=== PATIENT | female | born 1995 | race Caucasian/White ===

== ENCOUNTER 2016-12-24 12:48 | Emergency (ER) | payer MEDICAID, OTHER ==
[~2016-12-24] VITALS: Ht 157.5 cm; Wt 60.3 kg
[2016-12-24 12:52] VITALS: BP 127/85
--- NOTE | 2016-12-24 12:59 | NUR ---
PATIENT TO BED 8 AT THIS TIME.
--- NOTE | 2016-12-24 13:05 | NUR ---
21F BIB FAMILY C/O RIGHT INGUINAL PAIN, STABBING, NON-RADIATING, 9/10 X THIS MORNING; PT STATES 11 WEEKS ; PT STATES HAS SCANT, WHITE VAGINAL DISCHARGE; DENIES VAGINAL PAIN OR BLEEDING AT THIS TIME; PT DENIES N/V/D AT THIS TIME; PT A&OX4, PERRL, BL LUNG SOUNDS CLEAR, RR EVEN/UNLABORED, SKIN IS WARM/DRY/INTACT AT THIS TIME; PT RESTING IN BED W/ HOB ELEVATED AND IN LOWEST POSITION; POSITIONED FOR COMFORT; ER MD MADE AWARE OF STATUS. WILL CONTINUE TO MONITOR.
--- NOTE | 2016-12-24 13:26 | NUR ---
ER MD DR. TUCKER EVALUATING PT AT BEDSIDE.
[2016-12-24] MEDS ORDERED: ACETAMINOPHEN 650 MG/20.3 ML UDC PO ONE (13:30)
--- NOTE | 2016-12-24 15:05 | NUR ---
Patient appears to be resting comfortably in bed. Vital Signs within normal limits. Respirations even and unlabored. NO ACUTE DISTRESS NOTED AT THIS TIME. WILL CONTINUE TO MONITOR.
[2016-12-24 15:38] VITALS: BP 113/67
--- NOTE | 2016-12-24 15:38 | NUR ---
Patient discharged with v/s stable. Written and verbal after care instructions given and explained. Patient alert, oriented and verbalized understanding of instructions. Ambulatory with steady gait. All questions addressed prior to discharge. ID band removed. Patient advised to follow up with PMD. Rx of TYLENOL 325MG TAB given. Patient educated on indication of medication including possible reaction and side effects. Opportunity to ask questions provided and answered.
[2017-02-25] MEDS ORDERED: TYLENOL #3 300/1 TAB PO (10:53)
[2017-02-25] MEDS ORDERED: ZOFRAN ODT4 MG SL (10:57)
== END 2016-12-24 15:38 | disposition home or self-care (01) ==
LOC: MED 12:48
DX: O26.891 Other specified pregnancy related conditions, first trimester (principal); R10.2 Pelvic and perineal pain; Z3A.11 11 weeks gestation of pregnancy
CPT/HCPCS: 36415; 76705; 76801; 80053; 81001; 81025; 84702; 85025; 86900; 86901; 99285; Q0092

== ENCOUNTER 2016-12-25 15:39 | Emergency (ER) | payer OTHER ==
[~2016-12-25] VITALS: Ht 160 cm; Wt 60.3 kg
[2016-12-25 15:49] VITALS: BP 129/68
--- NOTE | 2016-12-25 16:31 | NUR ---
PT TO OVERFLOW 1
--- NOTE | 2016-12-25 16:40 | NUR ---
PATIENT TAKEN TO ULTRASOUND
--- NOTE | 2016-12-25 17:23 | NUR ---
BLOOD BEING DRAWN
--- NOTE | 2016-12-25 17:23 | NUR ---
PATIENT BACK FROM US STILL IN OF
[2016-12-25 17:32] LABS: BASOPHILS # (AUTO) 0.2 K/uL (0.00-0.22); LYMPHOCYTES # (AUTO) 2.5 K/uL (2.5-16.5); MONOCYTES # (AUTO) 0.5 K/uL (0.8-1.0); MONOCYTES % (AUTO) 4.4 % (1.7-9.3)
[2016-12-25 17:35] LABS: BASOPHILS % (AUTO) 1.8 % (0.0-2.0); EOSINOPHILS # (AUTO) 0.2 K/uL (0-0.4); EOSINOPHILS % (AUTO) 1.9 % (0.0-4.0); HEMATOCRIT 37.8 % (36-48); HEMOGLOBIN 12.9 g/dL (12.0-16.0); LYMPHOCYTES % (AUTO) 22.1 % (20.5-51.1); MEAN CORPUSCULAR HEMOGLOBIN 30 pg (27-31); MEAN CORPUSCULAR HGB CONC 34 g/dL (33-37); MEAN CORPUSCULAR VOLUME 89 fL (80-94); NEUTROPHILS # (AUTO) 7.8 K/uL (1.8-7.7); NEUTROPHILS % (AUTO) 69.8 % (42.2-75.2); PLATELET COUNT (AUTO) 254 K/uL (140-450); RED BLOOD CELL COUNT(AUTO) 4.25 MIL/uL (4.20-5.40); RED CELL DISTRIBUTION WIDTH 11.9 % (11.6-13.7); WHITE BLOOD COUNT (AUTO) 11.2 K/uL (4.5-11.0)
[2016-12-25 17:37] LABS: ANION GAP 11.2 (8-16); CALCIUM 8.6 mg/dL (8.5-10.1); CARBON DIOXIDE 23.5 mmol/L (21-32); CREATININE 0.4 mg/dL (0.6-1.3); POTASSIUM 3.7 mmol/L (3.5-5.1)
[2016-12-25 17:43] LABS: ALBUMIN 3.4 g/dL (3.4-5.0); TOTAL BILIRUBIN 0.2 mg/dL (0.0-1.0)
[2016-12-25 17:45] LABS: PARTIAL THROMBOPLASTIN TIME 29.2 secs (22-35.6); PROTHROMBIN TIME 9.3 secs (10.8-13.4)
[2016-12-25 18:10] VITALS: BP 113/68
--- NOTE | 2016-12-25 18:10 | NUR ---
DR. QUINTANILLA EXPLAINED TO PATIENT RESULT OF US. PATIENT WILL SEE Andie RUFFIN TOMORROW
--- NOTE | 2016-12-25 18:10 | NUR ---
Patient discharged with v/s stable. Written and verbal after care instructions given and explained. Patient verbalized understanding. Ambulatory with steady gait. All questions addressed prior to discharge. Advised to follow up with PMD.
--- NOTE | 2016-12-25 18:10 | NUR ---
Chart checked and completed. The patient's care was reviewed and supervised by Peterson Faith RN.
== END 2016-12-25 18:10 | disposition home or self-care (01) ==
LOC: MED 15:39
DX: O34.81 Maternal care for other abnormalities of pelvic organs, first trimester (principal); Z3A.11 11 weeks gestation of pregnancy
CPT/HCPCS: 36415; 76705; 80053; 85025; 85610; 85730; 99285; Q0092

== ENCOUNTER 2016-12-29 22:35 | Emergency (ER) | payer OTHER ==
[~2016-12-29] VITALS: Ht 160 cm; Wt 60.3 kg
[2016-12-29 22:36] VITALS: BP 126/67
--- NOTE | 2016-12-29 22:47 | NUR ---
PT TAKEN TO BED 4
--- NOTE | 2016-12-29 22:57 | NUR ---
21 Y/O F W/C/O LOWER ABD PAIN, NAUSEA AND VOMITING X TODAY AT 2200. PT STATES WAS SEEN LAST SATURDAY AND SATURDAY FOR SAME REASON AND WAS TOLD SHE HAD A CYST. IV LINE IN PLACED, ER MD MADE AWARE.
--- NOTE | 2016-12-29 23:12 | NUR ---
Dr. Call evaluating patient at bedside.
[2016-12-29 23:24] LABS: BASOPHILS # (AUTO) 0.2 K/uL (0.00-0.22); BASOPHILS % (AUTO) 1.8 % (0.0-2.0); EOSINOPHILS # (AUTO) 0.2 K/uL (0-0.4); EOSINOPHILS % (AUTO) 1.6 % (0.0-4.0); HEMATOCRIT 39.2 % (36-48); HEMOGLOBIN 13.4 g/dL (12.0-16.0); LYMPHOCYTES # (AUTO) 3.2 K/uL (2.5-16.5); LYMPHOCYTES % (AUTO) 30.4 % (20.5-51.1); MEAN CORPUSCULAR HEMOGLOBIN 31 pg (27-31); MEAN CORPUSCULAR HGB CONC 34 g/dL (33-37); MEAN CORPUSCULAR VOLUME 89 fL (80-94); MONOCYTES # (AUTO) 0.7 K/uL (0.8-1.0); MONOCYTES % (AUTO) 6.8 % (1.7-9.3); NEUTROPHILS # (AUTO) 6.2 K/uL (1.8-7.7); NEUTROPHILS % (AUTO) 59.4 % (42.2-75.2); PLATELET COUNT (AUTO) 253 K/uL (140-450); RED CELL DISTRIBUTION WIDTH 12.1 % (11.6-13.7); WHITE BLOOD COUNT (AUTO) 10.5 K/uL (4.5-11.0)
[2016-12-29 23:33] LABS: APPEARANCE,URINE CLEAR (CLEAR); BILIRUBIN,URINE NEGATIVE (NEGATIVE); BLOOD, URINE NEGATIVE (NEGATIVE); COLOR,URINE YELLOW (YELLOW); LEUKOCYTE ESTERASE ,URINE NEGATIVE (NEGATIVE); NITRITE, URINE NEGATIVE (NEGATIVE); PROTEIN,URINE NEGATIVE (NEGATIVE); UGLUCOSE NEGATIVE (NEGATIVE); UROBILINOGEN,URINE 0.2 EU/dL (0.2 - 1)
[2016-12-29 23:37] LABS: BACTERIA,URINE FEW /HPF (None Seen); RBC,URINE 0-5 /HPF (0-5); WBC,URINE 0-5 /HPF (0-5)
[2016-12-29 23:37] LABS: ALBUMIN 3.9 g/dL (3.4-5.0); ANION GAP 14.6 (8-16); CALCIUM 9.5 mg/dL (8.5-10.1); CREATININE 0.6 mg/dL (0.6-1.3); POTASSIUM 3.6 mmol/L (3.5-5.1); TOTAL BILIRUBIN 0.3 mg/dL (0.0-1.0); TOTAL PROTEIN, SERUM 7.9 g/dL (6.4-8.2)
--- NOTE | 2016-12-30 00:07 | NUR ---
PT TAKEN FOR ULTRASOUND
--- NOTE | 2016-12-30 00:30 | NUR ---
PT RETURN FROM ULTRASOUND
[2016-12-30] MEDS ORDERED: ONDANSETRON 4 MG/2 ML VIAL IVP ONE (00:55)
[2016-12-30] MEDS ORDERED: NACL 0.9% 1,000 ML IV ONE (00:55)
[2016-12-30] MEDS ORDERED: MORPHINE SULFATE 2 MG/ML SYR IVP ONE (00:55)
--- NOTE | 2016-12-30 01:27 | NUR ---
Pelvic exam performed by DR TUCKER with ME at bedside for entire examination. Patient tolerated procedure WELL. Patient assisted to position of comfort after examination. SPECIMENT COLLECETED BY EDWARD PANDA FOR WET MOUNT.
[2016-12-30 02:30] VITALS: BP 98/72
--- NOTE | 2016-12-30 02:30 | NUR ---
Patient discharged with v/s stable. Written and verbal after care instructions given and explained. Patient alert, oriented and verbalized understanding of instructions. Ambulatory with steady gait. All questions addressed prior to discharge. ID band removed. Patient advised to follow up with OB /MANUFACTURING TEST TECHNICIAN. Rx of NORCO AND ZOFRAN given. Patient educated on indication of medication including possible reaction and side effects. Opportunity to ask questions provided and answered.
[2017-01-01 06:31] LABS: CHLAMYDIA TRACHOMATIS AMP DNA Negative (Negative)
== END 2016-12-30 02:30 | disposition home or self-care (01) ==
LOC: MED 22:35
DX: O34.81 Maternal care for other abnormalities of pelvic organs, first trimester (principal); N83.291 Other ovarian cyst, right side; Z3A.11 11 weeks gestation of pregnancy
CPT/HCPCS: 36415; 76705; 76817; 80053; 81001; 81025; 84702; 85025; 87086; 87210; 96361; 96374; 96375; 99285; J2270; J2405; J7030; Q0092; 87491

== ENCOUNTER 2017-02-21 15:07 | Inpatient (IN) | payer OTHER ==
[~2017-02-21] VITALS: Ht 160 cm; Wt 61.7 kg
--- NOTE | 2017-02-21 15:07 | NUR ---
Patient to bed 03 via wheelchair per RN--from L&D.
[2017-02-21 15:10] VITALS: BP 109/59
--- NOTE | 2017-02-21 15:10 | NUR ---
PATIENT PRESENTS TO ED WITH PT PRESENTS TO ER FROM L&D FOR EVALUATION OF ABDOMINAL PAIN, N/V. PT SEEN IN ER LAST NOC FOR SAME S/SX. LMP 10/05/16, EDC 07/12/17; DENIES N/V; SKIN IS PINK/WARM/DRY; AAOX4 WITH EVEN AND STEADY GAIT; LUNGS CLEAR BL; HR EVEN AND REGULAR; PT DENIES ANY FEVER, CP, SOB, OR COUGH AT THIS TIME; PATIENT STATES PAIN OF 9/10 AT THIS TIME; VSS; PATIENT POSITIONED FOR COMFORT; HOB ELEVATED; BEDRAILS UP X2; BED DOWN. ER MD MADE AWARE OF PT STATUS.
--- NOTE | 2017-02-21 15:16 | NUR ---
Dr. Nguyen evaluating patient at bedside.
[2017-02-21] MEDS ORDERED: NACL 0.9% 1,000 ML IV SCH (15:22)
[2017-02-21] MEDS ORDERED: ONDANSETRON 4 MG/2 ML VIAL IVP ONE (15:25)
[2017-02-21] MEDS ORDERED: HYDROmorphone PFS 2 MG/ML SYR IVP ONE ×2 (15:25→16:45)
--- NOTE | 2017-02-21 15:40 | NUR ---
DR BETANCOURT EXPLAINED POSSIBLE SIDE EFFECTS OF DILAUDID ON FETUS TO PT AND , PT AGREED TO RECIEVE MEDICATION
--- NOTE | 2017-02-21 16:08 | NUR ---
DR BETANCOURT AT BEDSIDE UPDATING PT OF CONDITION
[2017-02-21 16:19] LABS: BASOPHILS # (AUTO) 0.1 K/uL (0.00-0.22); BASOPHILS % (AUTO) 0.8 % (0.0-2.0); EOSINOPHILS # (AUTO) 0.2 K/uL (0-0.4); EOSINOPHILS % (AUTO) 1.1 % (0.0-4.0); HEMATOCRIT 35.7 % (36-48); HEMOGLOBIN 12.3 g/dL (12.0-16.0); LYMPHOCYTES # (AUTO) 2.5 K/uL (2.5-16.5); LYMPHOCYTES % (AUTO) 16.1 % (20.5-51.1); MEAN CORPUSCULAR HEMOGLOBIN 31 pg (27-31); MEAN CORPUSCULAR HGB CONC 35 g/dL (33-37); MEAN CORPUSCULAR VOLUME 90 fL (80-94); MONOCYTES # (AUTO) 0.8 K/uL (0.8-1.0); MONOCYTES % (AUTO) 5.3 % (1.7-9.3); NEUTROPHILS # (AUTO) 11.7 K/uL (1.8-7.7); NEUTROPHILS % (AUTO) 76.7 % (42.2-75.2); PLATELET COUNT (AUTO) 272 K/uL (140-450); RED BLOOD CELL COUNT(AUTO) 3.99 MIL/uL (4.20-5.40); RED CELL DISTRIBUTION WIDTH 12.9 % (11.6-13.7); WHITE BLOOD COUNT (AUTO) 15.3 K/uL (4.5-11.0)
[2017-02-21 16:27] LABS: CALCIUM 8.9 mg/dL (8.5-10.1); CARBON DIOXIDE 23.1 mmol/L (21-32); CREATININE 0.4 mg/dL (0.6-1.3); POTASSIUM 3.1 mmol/L (3.5-5.1)
[2017-02-21 16:34] LABS: ALBUMIN 3.3 g/dL (3.4-5.0); TOTAL BILIRUBIN 0.3 mg/dL (0.0-1.0); TOTAL PROTEIN, SERUM 7.6 g/dL (6.4-8.2)
[2017-02-21] MEDS: HYDROmorphone 1 MG/ML AMP IVP ONE ×2 (16:45→18:51)
--- NOTE | 2017-02-21 18:06 | NUR ---
Patient was taken to bed 08 via wheelchair per RN.
[2017-02-21] MEDS ORDERED: HYDROmorphone 1 MG/ML AMP ONE (18:53)
--- NOTE | 2017-02-21 19:20 | NUR ---
REPORT GIVEN RN PIN FOR CONTINUATION OF CARE
--- NOTE | 2017-02-21 19:21 | NUR ---
GOT REPORT FROM GERRI REYES. PT. RESTING IN BED, NO S/SX OF DISTRESS AT THIS TIME.
--- NOTE | 2017-02-21 19:31 | NUR ---
Female Trash Collector accompanied female patient for Pelvic Exam. DR. IBRAHIM
[2017-02-21] MEDS ORDERED: HYDROmorphone 1 MG/ML AMP IVP SCH (20:00)
[2017-02-21] MEDS ORDERED: DOCUSATE SODIUM 100 MG GELCAP PO PRN (20:00)
[2017-02-21 20:16] LABS: APPEARANCE,URINE HAZY (CLEAR); BILIRUBIN,URINE NEGATIVE (NEGATIVE); BLOOD, URINE NEGATIVE (NEGATIVE); COLOR,URINE YELLOW (YELLOW); LEUKOCYTE ESTERASE ,URINE NEGATIVE (NEGATIVE); NITRITE, URINE NEGATIVE (NEGATIVE); PROTEIN,URINE NEGATIVE (NEGATIVE); UGLUCOSE NEGATIVE (NEGATIVE); UROBILINOGEN,URINE 0.2 EU/dL (0.2 - 1)
[2017-02-21 20:21] LABS: INR 0.9 (0.8-1.2); PARTIAL THROMBOPLASTIN TIME 24.7 secs (22-35.6); PROTHROMBIN TIME 9.5 secs (10.8-13.4)
[2017-02-21 20:24] LABS: CHOL/HDL RATIO 3.7 (1-4.5); MAGNESIUM 1.4 mg/dL (1.8-2.4); PHOSPHORUS 4.7 mg/dL (2.5-4.9)
--- NOTE | 2017-02-21 20:25 | NUR ---
Patient will be admitted to care of DR. GUERRERO. Admited to TELEMETRY. Will go to room 120 A. Belongings list completed. Report to GERRI LAUREANO.
--- NOTE | 2017-02-21 20:30 | NUR ---
PT ARRIVED TO UNIT VIA GURNEY. INITIAL ASSESSMENT COMPLETED. PT AAOX4. VS STABLE, PT'S SKIN IS INTACT. PT HAS IV ON RIGHT AC G 20; ASYMPTOMATIC, PATENT AND INTACT INFUSING FLUIDS WELL. PT IS NPO, AND SHE IS AWARE. ORIENTED PT TO ROOM AND SURROUNDINGS AND USE OF CALL LIGHT. EXPLAINED PLAN OF CARE TO PT AND SIGNIFICANT OTHER AND THEY VERBALIZE UNDERSTANDING. CALL LIGHT WITHIN REACH. WILL CONTINUE TO MONITOR PT.
[2017-02-21] MEDS: NACL 0.9% 1,000 ML IV SCH (20:41)
[2017-02-21 20:44] LABS: FREE T4 (FREE THYROXINE) 1.02 ng/dL (0.76-1.46); THYROID STIMULATING HORMONE 0.76 uIU/mL (0.34-3.74)
--- NOTE | 2017-02-21 21:02 | NUR ---
PT COMPLAINING OF LOWER ABDOMINAL PAIN. VS STABLE, WILL MEDICATE ORDERED.
[2017-02-21] MEDS ORDERED: cefTRIAXone 1,000 MG VIAL ONE (21:04)
[2017-02-21] MEDS: metroNIDAZOLE 500 MG/NS PREMIX 100 ML IV SCH (22:06)
--- NOTE | 2017-02-21 22:11 | NUR ---
RADHA INFUSING NOW. PT ON HER CELL PHONE. PT STABLE, CALL LIGHT WITHIN REACH.
--- NOTE | 2017-02-21 22:53 | NUR ---
PT COMPLAINING OF ABDOMINAL PAIN. ONE TIME ORDER FOR DILAUDID 1 MG WAS GIVEN TWO HOURS. PAGED DR. JIANG. HE ASKED FOR PT'S ROOM NUMBER AND STATED THAT HE WOULD PUT IN ORDERS. WILL FOLLOW UP.
[2017-02-21] MEDS ORDERED: MORPHINE SULFATE 2 MG/ML SYR IVP PRN (23:05)
--- NOTE | 2017-02-21 23:15 | NUR ---
DR. JIANG ORDERED MORPHINE FOR PAIN. AWARE OF PT BEEN 19 WEEKS . WILL CONTINUE TO MONITOR PT.
[2017-02-22] VITALS (7 sets, daily range): BP systolic 92–127; BP diastolic 51–75
--- NOTE | 2017-02-22 00:36 | NUR ---
PT COMPLAINING OF ABDOMINAL PAIN 03/04, VS STABLE. WILL MEDICATE ORDERED.
--- NOTE | 2017-02-22 01:04 | NUR ---
PT'S POTASSIUM IS 3.1 AND MAGNESIUM IS 1.4. MD JIANG AWARE. WILL FOLLOW UP ON ORDERS.
[2017-02-22] MEDS ORDERED: POTASSIUM CHLORIDE 40 MEQ, LIDOCAINE 1% 25 MG in NACL 0.9% 250 ML IV ONE (01:25)
[2017-02-22] MEDS ORDERED: MAG SULF 2000 MG/WATER PREMIX 50 ML IV ONE (01:25)
--- NOTE | 2017-02-22 01:31 | NUR ---
PT COMPLAINING OF NAUSEA AND VOMITING. WILL GIVE ZOFRAN ORDERED.
[2017-02-22] MEDS: ONDANSETRON 4 MG/2 ML VIAL IVP PRN (01:33)
--- NOTE | 2017-02-22 01:44 | NUR ---
MAGNESIUM INFUSING NOW ORDERED. WILL CONTINUE TO MONITOR PT.
--- NOTE | 2017-02-22 03:26 | NUR ---
PT AMBULATED TO THE RESTROOM. PT BACK IN BED NOW. CALL LIGHT WITHIN REACH.
[2017-02-22] MEDS ORDERED: KCL 20 MEQ/WATER INJ PREMIX 200 ML IV ONE (03:35)
--- NOTE | 2017-02-22 04:02 | NUR ---
MAGNESIUM JUST FINISHED INFUSING. PER AIR FORCE PILOT, WILL GIVE FLAGYL AND THEN WILL START THE POTASSIUM.
[2017-02-22] MEDS: metroNIDAZOLE 500 MG/NS PREMIX 100 ML IV SCH ×3 (04:19→21:45)
[2017-02-22] MEDS: HYDROmorphone 1 MG/ML AMP IVP PRN ×4 (04:24→14:34)
--- NOTE | 2017-02-22 04:24 | NUR ---
PT COMPLAINING OF ABDOMINAL PAIN 04/04. SHE STATES THAT SHE WANTS MORE PAIN MEDICATION. WILL MEDICATE ORDERED.
--- NOTE | 2017-02-22 05:08 | NUR ---
PT SLEEPING NO SIGNS OF DISTRESS OR DISCOMFORT NOTED. WILL CONTINUE TO MONITOR PT.
--- NOTE | 2017-02-22 05:45 | NUR ---
PT TOLERATING POTASSIUM WELL. PT HAS SCDS ON. SHE STATES THAT SHE FEELS BETTER. CALL LIGHT WITHIN REACH.
[2017-02-22 06:45] LABS: HEMATOCRIT 32.9 % (36-48); HEMOGLOBIN 10.9 g/dL (12.0-16.0); MEAN CORPUSCULAR HEMOGLOBIN 30 pg (27-31); MEAN CORPUSCULAR HGB CONC 33 g/dL (33-37); MEAN CORPUSCULAR VOLUME 92 fL (80-94); PLATELET COUNT (AUTO) 265 K/uL (140-450); RED BLOOD CELL COUNT(AUTO) 3.59 MIL/uL (4.20-5.40); RED CELL DISTRIBUTION WIDTH 12.8 % (11.6-13.7); WHITE BLOOD COUNT (AUTO) 15.2 K/uL (4.5-11.0)
[2017-02-22 07:10] LABS: ANION GAP 14.4 (8-16); CALCIUM 8.1 mg/dL (8.5-10.1); CARBON DIOXIDE 22.3 mmol/L (21-32); CREATININE 0.4 mg/dL (0.6-1.3); POTASSIUM 3.7 mmol/L (3.5-5.1)
[2017-02-22 07:16] LABS: MAGNESIUM 2.1 mg/dL (1.8-2.4); PHOSPHORUS 3.8 mg/dL (2.5-4.9)
--- NOTE | 2017-02-22 07:28 | NUR ---
ENDORSED PLAN OF CARE TO DAY SHIFT NURSE. PT IN STABLE CONDITION.
--- NOTE | 2017-02-22 07:30 | NUR ---
RECEIVED REPORT FROM MARY RN. PT AMBULATING FROM BATHROOM. NO S/S OF ACUTE DISTRESS. PT DENIES PAIN. IV SITE PATENT AND INTACT. AAOX4. CALL LIGHT WITHIN REACH. SAFETY MEASURES ENSURED. WILL CONTINUE TO MONITOR.
[2017-02-22 08:12] LABS: EOSINOPHILS % (MANUAL) 1 % (0-4)
[2017-02-22 08:13] LABS: LYMPHOCYTES % (MANUAL) 13 % (20-46); MONOCYTES % (MANUAL) 5 % (5-12); NEUTROPHILS % (MANUAL) 81 (43-65)
--- NOTE | 2017-02-22 08:13 | NUR ---
AM MEDICATIONS GIVEN WITH EDUCATION. PT VERBALIZED UNDERSTANDING. PT TOLERATED WELL. PT STATES 8/10 ABDOMINAL PAIN. MEDICATED ORDERED. WILL CONTINUE TO MONITOR.
[2017-02-22 08:14] LABS: PLATELET ESTIMATE ADEQUATE
[2017-02-22] MEDS: LACTOBACILLUS RHAMNOSUS GG 1 EACH CAP PO SCH (08:17)
--- NOTE | 2017-02-22 08:37 | NUR ---
CM NOTE INITAL REVIEW FAXED TO [facility] [phone] BANG MAHONEY [phone] EXT [phone]
--- NOTE | 2017-02-22 08:45 | NUR ---
PATIENT HAS BEEN SCREENED AND CATEGORIZED MODERATE NUTRITION RISK. PATIENT WILL BE SEEN WITHIN 3-5 DAYS OF ADMISSION. 02/24/17-02/26/[address]
[2017-02-22] MEDS ORDERED: MORPHINE SULFATE 2 MG/ML SYR IVP PRN (09:10)
[2017-02-22 09:16] LABS: T4 (THYROXINE) 11.6 ug/dL (4.5-12.0)
[2017-02-22 09:24] LABS: T3 UPTAKE < 15 % (24-39)
[2017-02-22] MEDS ORDERED: MORPHINE SULFATE 4 MG/ML SYR IVP PRN (09:28)
[2017-02-22 09:43] LABS: LACTIC ACID 0.9 mmol/L (0.4-2.0)
[2017-02-22] MEDS: NACL 0.9% 1,000 ML IV SCH ×2 (10:13→21:05)
--- NOTE | 2017-02-22 10:42 | NUR ---
Social Service Note: Chart reviewed, no discharge needs identified.
--- NOTE | 2017-02-22 10:54 | NUR ---
UPON ENTERING ROOM PT CRYING AND RESTLESS. PT STATES SHARP STABBING PAIN IS 10/10 RIGHT LOWER ABDOMEN RADIATING TO BACK. PT STATES PAIN WAS TRIGGERED BY A POSITION CHANGE. NUMERICAL CONTROL LATHE OPERATOR MADE AWARE. MORPHINE GIVEN. WILL CONTINUE TO MONITOR.
--- NOTE | 2017-02-22 10:57 | NUR ---
CM NOTE FAXED ORDER FOR TRANSFER TO [facility] TO [place] [phone] ATTN: BANG MAHONEY [phone]
--- NOTE | 2017-02-22 11:15 | NUR ---
ABBY HAZEL SPOKE WITH ANDREW FOR ABBY RAYMUNDO OF [facility] [phone] EXT [phone] TO INFORM HER OF THE ORDER FOR TRANSFER FOR HLOC AND TO ASK WHICH FACILITY THEY ARE CONTRACTED WITH. PER ANDREW, ABBY RAYMUNDO IS STILL IN A MEETING AND WILL RETURN THE CALL WHEN SHE BECOMES AVAILABLE. ABBY PATTERSON.
--- NOTE | 2017-02-22 11:43 | NUR ---
PER DR. GUY ALLRED TO GIVE DILAUDID NOW FOR PAIN.
[2017-02-22] MEDS: MULTIVIT/MIN/CA/FE/FA 1 TAB PO SCH (12:51)
--- NOTE | 2017-02-22 12:52 | NUR ---
MEDICATIONS GIVEN WITH EDUCATION. PT VERBALIZED UNDERSTANDING. PT TOLERATED WELL. WILL CONTINUE TO MONITOR.
--- NOTE | 2017-02-22 12:57 | NUR ---
1230 RECEIVED CALL FROM BREANNE MORA AT [facility] PHONE [phone] EXT [phone] AND SHE PROVIDED A LIST OF CONTRACTED FACILITIES WITH [facility], [facility], [facility], [facility], [facility], [facility], [facility], [facility], [facility], [facility], [facility] AND [facility].
--- NOTE | 2017-02-22 14:18 | NUR ---
1300 INFORMATION FAXED TO [facility] TRANSFER UNIT AT [phone], PHONE [phone] OPTION# [phone] RECEIVED CALL FROM GABBY AT TRANSFER UNIT REQUESTING FURTHER INFORMATION WHICH WAS FAXED. AT 1330 CALLED [facility] AND SPOKE WITH SATELLITE TELEVISION INSTALLER CHRIS AND HE STATED THAT THEY COULD DO MRI AND SEND PT BACK BUT COULD NOT ADMIT PT PT IS HIGH RISK SINCE SHE IS 19 WEEKS . CALL PLACED TO [facility] [phone] AND WAS TRANSFERRED TO SATELLITE TELEVISION INSTALLER WHO STATED WOULD TRANSFER ME TO AND I LEFT VM MESSAGE. [phone] CALLED BREANNE AT [facility] TO REQUEST AUTHORIZATION IF A BED BECOMES AVAILABLE FOR PT. SHE STATED THAT AUTHORIZATION CAN NOT BE GIVEN UNTIL PLACEMENT IS FOUND. STATED THAT THEIR GREEN END MAN IS AWARE OF SITUATION AND THAT WHEN BED FOUND TO CALL [phone] AND AUTHORIZATION WILL BE GIVEN QUICKLY. INFORMED HER THAT MOST OF THE FACILITIES PROVIDED DO NOT HAVE NICU AND THEY CONSIDER PT HIGH RISK.
--- NOTE | 2017-02-22 14:29 | NUR ---
Spoke to CHERY nurse supervisor asbestos removal at [facility] at [phone] and stated no bed available and transfered me to [facility] case specialist and left a message.
--- NOTE | 2017-02-22 14:37 | NUR ---
PER DR. JOSEMANUEL ALLRED TO GIVE EARLY FOR PT'S SEVERE PAIN. FAMILY AT BEDSIDE. WILL CONTINUE TO MONITOR.M
--- NOTE | 2017-02-22 15:34 | NUR ---
1430 CALL RECEIVED FROM GABBY AT [facility] TRANSFER UNIT [phone] OPTION 4 AND FAXED OVER REQUESTED INFORMATION.
--- NOTE | 2017-02-22 15:50 | NUR ---
CALL PLACED TO GABBY AT [facility] AND INFORMED HER TO CANCEL REQUEST FOR TRANSFER PT WILL GO TO SURGERY TODAY.
--- NOTE | 2017-02-22 16:03 | NUR ---
PT SLEEPING IN BED. NO S/S OF ACUTE DISTRESS. WILL CONTINUE TO MONITOR.
[2017-02-22] MEDS ORDERED: BUPIVACAINE-MPF/EPI 0.5% 30 ML VIAL INJ ONE (17:19)
--- NOTE | 2017-02-22 17:23 | NUR ---
PT OFF UNIT TO OR
[2017-02-22] MEDS ORDERED: MORPHINE PRES FREE 10 MG/10 ML AMP IV ONE (18:52)
[2017-02-22] MEDS ORDERED: NALOXONE 0.4 MG/ML VIAL IVP PRN (19:20)
--- NOTE | 2017-02-22 19:28 | NUR ---
ENDORSED PLAN OF CARE TO NURSE JENNIE AT PT BEDSIDE. NO S/S OF ACUTE DISTRESS NOTED. Addendum: 02/22/17 at 1929 by Héctor Austin RN GERRI MARTINES
--- NOTE | 2017-02-22 19:30 | NUR ---
RECEIVED REPORTS FROM DAY RN. PATIENT IS IN THE OR RIGHT NOW. WILL CONTINUE PLAN OF CARE WHEN PATIENT IS BACK TO THE UNIT FROM THE OR.
--- NOTE | 2017-02-22 21:00 | NUR ---
PATIENT IS BACK TO THE UNIT FROM OR. VITAL SIGNS TAKEN WITHIN NORMAL RANGE, S/S OF ACUTE DISTRESS NOTED, PATIENT DENIES PAIN AT THIS TIME, DRESSING ON RT ABDOMEN CLEAN AND DRY. ORELLANA CATHETER DRAINING CLEAR YELLOW URINE BY GRAVITY. PATIENT IS KEPT SUPINE AND FLAT IN BED, CALL LIGHT WITHIN REACH, SAFETY MEASURE ENSURED, WILL CONTINUE TO MONITOR.
--- NOTE | 2017-02-22 21:01 | NUR ---
VS T 98.8, BP 99/57, HR 86, RR 18, O2 SAT 98%. DENIES PAIN
--- NOTE | 2017-02-22 21:30 | NUR ---
VITAL SIGNS TAKEN, READ T 98.4, BP104/56, HR 89, RR 18, O2 SAT 96%. PATIENT DENIES PAIN AT THIS TIME. NO S/S OF ACUTE DISTRESS NOTED, WILL CONTINUE TO MONITOR.
[2017-02-22] MEDS: DOCUSATE SODIUM 100 MG GELCAP PO SCH (21:44)
--- NOTE | 2017-02-22 22:00 | NUR ---
VITAL SIGNS TAKEN READ T 98.4, BP 98/54, HR 88, RR, 17, O2 SAT 99%. PATIENT DENIES PAIN AT THIS TIME. DRESSING ON RT ABDOMEN CLEAN AND DRY. CALL LIGHT WITHIN REACH WILL CONTINUE TO MONITOR.
--- NOTE | 2017-02-22 22:30 | NUR ---
VITAL SIGNS TAKEN, READ T 98.6, BP 103/51, HR 94, RR 17, O2 SAT 97%, DENIES PAIN AT THIS TIME. DRESSING ON RT ABDOMEN CLEAN AND DRY, CALL LIGHT WITHIN REACH, WILL CONTINUE TO MONITOR.
--- NOTE | 2017-02-22 23:30 | NUR ---
VS T98.2, BP 105/60, HR 89, RR15, O2SAT 97%, PATIENT DENIES PAIN AT THIS TIME, DRESSING INTACT, DRY AND CLEAN. CALL LIGHT WITHIN REACH, WILL CONTINUE TO MONITOR
[2017-02-23] VITALS: BP 105/60
--- NOTE | 2017-02-23 00:30 | NUR ---
VS T 98.3, BP 101/56, HR 84, RR 17, O2SAT 99%. DENIES PAIN AT THIS TIME. CALL LIGHT WITHIN REACH, WILL CONTINUE TO MONITOR
--- NOTE | 2017-02-23 02:00 | NUR ---
ORELLANA CATHETER TAKEN OUT, PATIENT TOLERATED WELL. WILL MONITOR URINE OUTPUT, AND NOTIFY MD IF PATIENT IS NOT ABLE TO VOID FOR 6 HOURS.
--- NOTE | 2017-02-23 02:30 | NUR ---
ASSIST PATIENT TO THE BATHROOM, PATIENT VOID X1, AND DENIES DISCOMFORT OR DIFFICULT URINATING. SAFETY MEASURE ENSURED, WILL CONTINUE TO MONITOR.
[2017-02-23 04:00] VITALS: BP 93/51
--- NOTE | 2017-02-23 04:22 | NUR ---
PATIENT ASLEEP IN BED, NO S/S OF ACUTE DISTRESS NOTED, RESPIRATION EVEN AND UNLABORED, WILL CONTINUE TO MONITOR.
[2017-02-23] MEDS: metroNIDAZOLE 500 MG/NS PREMIX 100 ML IV SCH ×3 (04:46→21:46)
--- NOTE | 2017-02-23 06:28 | NUR ---
PATIENT ASLEEP IN BED, RESPIRATION EVEN AND UNLABORED, DRESSING DRY AND INTACT. SAFETY MEASURE ENSURED, WILL CONTINUE TO MONITOR.
[2017-02-23 06:32] LABS: HEMOGLOBIN 10.5 g/dL (12.0-16.0); MEAN CORPUSCULAR HEMOGLOBIN 30 pg (27-31); MEAN CORPUSCULAR HGB CONC 33 g/dL (33-37); MEAN CORPUSCULAR VOLUME 91 fL (80-94); PLATELET COUNT (AUTO) 242 K/uL (140-450); RED BLOOD CELL COUNT(AUTO) 3.51 MIL/uL (4.20-5.40); RED CELL DISTRIBUTION WIDTH 12.9 % (11.6-13.7); WHITE BLOOD COUNT (AUTO) 12.3 K/uL (4.5-11.0)
[2017-02-23 07:03] LABS: ANION GAP 13.8 (8-16); CALCIUM 8.5 mg/dL (8.5-10.1); CARBON DIOXIDE 23.6 mmol/L (21-32); CREATININE 0.4 mg/dL (0.6-1.3); POTASSIUM 3.4 mmol/L (3.5-5.1)
[2017-02-23 07:11] LABS: MAGNESIUM 1.6 mg/dL (1.8-2.4); PHOSPHORUS 4.1 mg/dL (2.5-4.9)
--- NOTE | 2017-02-23 07:16 | NUR ---
ASSUMED CONTINUITY OF CARE. NO SIGNS AND SYMPTOMS OF ACUTE DISTRESS NOTED. INITIAL ASSESSMENT DONE. PT. -ELSA ON BEDSIDE. KEEP COMFORTABLE ON BED. EXPLAINED DIAGNOSIS, PLAN OF CARE, POST-OP CARE, INCISION CARE, PAIN MANAGEMENT TEACHING, USE OF CALL LIGHT/BED/TV/BATHROOM. VERBALIZED UNDERSTANDING. CALL LIGHT WITHIN REACH.
--- NOTE | 2017-02-23 07:16 | NUR ---
ENDORSED PLAN OF CARE TO DAY RN, PATIENT IS IN STABLE CONDITION.
--- NOTE | 2017-02-23 07:30 | NUR ---
PT AWAKE, ALERT ORIENTEDX4. NO SOB NOTED. DENIES ANY PAIN OR DISCOMFORT AT THIS TIME. PT AMBULATORY. ABDOMINAL DRESSING INTACT. SAFETY PRECAUTION IN PLACE. CALL LIGHT WITHIN REACH.
[2017-02-23 07:35] LABS: BAND % (MANUAL) 4 % (0-8); LYMPHOCYTES % (MANUAL) 8 % (20-46); MONOCYTES % (MANUAL) 3 % (5-12); NEUTROPHILS % (MANUAL) 85 (43-65); PLATELET ESTIMATE ADEQUATE
--- NOTE | 2017-02-23 07:36 | NUR ---
Patient's Plan of Care was discussed and reviewed with [employer] [place]: ALBARO RAYA.
--- NOTE | 2017-02-23 07:40 | NUR ---
WENT TO BATHROOM WITH ASSISTANCE FROM PT. -ELSA. TOLERATED WELL. NO C/O PAIN. NO SOB, NOTED.
[2017-02-23 08:00] VITALS: BP 110/64
--- NOTE | 2017-02-23 08:10 | NUR ---
DR. Andie LEGER CAME AND SEEN PT..
[2017-02-23] MEDS: DOCUSATE SODIUM 100 MG GELCAP PO SCH ×2 (08:49→21:46)
[2017-02-23] MEDS: LACTOBACILLUS RHAMNOSUS GG 1 EACH CAP PO SCH (08:49)
[2017-02-23] MEDS ORDERED: MULTIVIT/MIN/CA/FE/FA 1 TAB PO SCH (09:00)
--- NOTE | 2017-02-23 09:03 | NUR ---
FADY PRITCHETT FROM L & D CAME AND CHECK HEART TONE. FADY PRITCHETT REPORTED THAT HEART TONE WAS 142. INFORMED CHARGE NURSE JAZMINE PRITCHETT.
[2017-02-23] MEDS: NACL 0.9% 1,000 ML IV SCH (09:52)
--- NOTE | 2017-02-23 10:00 | NUR ---
AMBULATES ON HALLWAY WITH ASSISTANCE FROM PT. -ELSA. TOLERATED WELL. NO C/O PAIN.
[2017-02-23 10:21] LABS: FOLIC ACID 8.6 ng/mL (>3.0)
[2017-02-23 10:47] LABS: HEMOGLOBIN A1C 4.6 % (4.8-5.6)
[2017-02-23 12:00] VITALS: BP_SYST 116; BP_SYST 122; BP_DIAS 64; BP_DIAS 71
[2017-02-23] MEDS: MULTIVIT/MIN/CA/FE/FA 1 TAB PO SCH (12:54)
[2017-02-23] MEDS ORDERED: MAGNESIUM OXIDE 400 MG TAB PO SCH (13:05)
[2017-02-23] MEDS ORDERED: POTASSIUM CHLORIDE 20% 40 MEQ/15 ML UDC PO SCH (13:05)
--- NOTE | 2017-02-23 13:24 | NUR ---
DR. SCHULER CAME, SEEN PT. AND CHECKED PT. CHART.
[2017-02-23] MEDS: DEXT 5% / NACL 0.45% 500 ML IV SCH (14:31)
[2017-02-23] MEDS: ACETAMINOPHEN 325 MG TAB PO PRN (18:01)
--- NOTE | 2017-02-23 19:12 | NUR ---
BEDSIDE REPORT GIVEN TO NAEEM PRITCHETT. IVF INFUSING WELL. IN STABLE CONDITION.
--- NOTE | 2017-02-23 19:34 | NUR ---
RECEIVED FROM AM RN IN BED AWAKE AND ALERT. ABLE TO VERBALIZE NEEDS WELL. DX. OVARIAN CYST. IVF SITE TO RAC INTACT AND NO INFILTRATION NOTED. RE-ORIENTED TO CALL LIGHT USE AND CARE PLANS FOR THE NIGHT DISCUSSED WITH HER. NO COMPLAINT AT THIS TIME. ABDOMINAL INCISION TO RLQ INTACT AND NO BLEEDING. DRESSING INTACT. ENCOURAGE TO CALL FOR ANY HELP SHE MAY NEED.
--- NOTE | 2017-02-23 22:37 | NUR ---
SLEEPING AT THIS TIME. NO RESTLESSNESS NOTED. MADE SURE CALL LIGHT WITH IN REACH.
[2017-02-24 00:26] VITALS: BP 117/72
--- NOTE | 2017-02-24 01:05 | NUR ---
HEART TONE 140 TAKEN BY LABOR AND SPINNING LATHE OPERATOR.
--- NOTE | 2017-02-24 03:53 | NUR ---
ASSISTED TO RESTROOM. NO COMPLAINTS DONE. A/O X 4. ROM X 4. NO BLEEDING TO INCISION SITE RLQ S/P LAP APPY.
[2017-02-24] MEDS: ACETAMINOPHEN 325 MG TAB PO PRN (04:24)
--- NOTE | 2017-02-24 04:26 | NUR ---
PT. MEDICATED WITH TYLENOL TABLET. CRYING STILL AFTER MEDICATION GIVEN STATING "IT IS VERY PAINFUL" REQUESTED FOR IVP PAIN RELIEVER. STATED TO JUST GIVE HER A LITTLE OF IT. PROS AND CONS OF EFFECT EXPLAINED TO HER. "PLEASE JUST GIVE ME THE STRONGER MEDICATION" PT. CRYING. WILL MEDICATE REQUESTED FOR DILAUDID 1/2 MG OF 1 MG IVP ORDERED. .
[2017-02-24] MEDS: HYDROmorphone 1 MG/ML AMP IVP PRN ×4 (04:34→22:30)
[2017-02-24] MEDS: metroNIDAZOLE 500 MG/NS PREMIX 100 ML IV SCH ×3 (05:00→21:25)
--- NOTE | 2017-02-24 05:05 | NUR ---
RE-CHECKED ON PT. SLEEPING. WOKE UP AND STATED IT IS BETTER. PT. WENT BACK TO SLEEP. IV ABT FLAGYL INFUSED ORDERED AT THIS TIME.
[2017-02-24 06:44] LABS: ANION GAP 13.1 (8-16); BASOPHILS # (AUTO) 0.1 K/uL (0.00-0.22); BASOPHILS % (AUTO) 1.4 % (0.0-2.0); CREATININE 0.4 mg/dL (0.6-1.3); EOSINOPHILS # (AUTO) 0.2 K/uL (0-0.4); EOSINOPHILS % (AUTO) 1.7 % (0.0-4.0); HEMATOCRIT 31.3 % (36-48); HEMOGLOBIN 10.5 g/dL (12.0-16.0); LYMPHOCYTES # (AUTO) 1.4 K/uL (2.5-16.5); MEAN CORPUSCULAR HEMOGLOBIN 31 pg (27-31); MEAN CORPUSCULAR HGB CONC 34 g/dL (33-37); MEAN CORPUSCULAR VOLUME 92 fL (80-94); MONOCYTES # (AUTO) 0.9 K/uL (0.8-1.0); MONOCYTES % (AUTO) 8.9 % (1.7-9.3); NEUTROPHILS # (AUTO) 7.4 K/uL (1.8-7.7); PLATELET COUNT (AUTO) 245 K/uL (140-450); POTASSIUM 3.1 mmol/L (3.5-5.1); RED BLOOD CELL COUNT(AUTO) 3.42 MIL/uL (4.20-5.40); RED CELL DISTRIBUTION WIDTH 12.8 % (11.6-13.7)
--- NOTE | 2017-02-24 07:30 | NUR ---
PT AWAKE AND ALERT, NO SIGNS OF ACUTE DISTRESS. BOWEL SOUNDS ACTIVE IN ALL 4 QUADRANTS. BOWEL AND BLADDER CONTINENCE. RLQ ABDOMINAL INCISION COVERED WITH DRY DRESSING FROM LAP APPENDECTOMY ON 02/22. AMBULATORY WITH BRP. IV PATENT AND ASYMPTOMATIC. CPMPLAINT OF PAIN 04/04 IN ABDOMEN. RE-ORIENTED PATIENT TO UNIT AND TO HOSPITAL, PT VERBALIZED UNDERSTANDING. BED IN LOW POSITION WITH BILATERAL HALF SIDE RAILS UP, CALL LIGHT WITHIN REACH.
[2017-02-24 08:00] VITALS: BP 111/68
[2017-02-24] MEDS: DOCUSATE SODIUM 100 MG GELCAP PO SCH ×2 (08:14→09:00)
[2017-02-24] MEDS: LACTOBACILLUS RHAMNOSUS GG 1 EACH CAP PO SCH (08:14)
[2017-02-24] MEDS ORDERED: SIMETHICONE 80 MG TAB.CHEW PO PRN (08:55)
--- NOTE | 2017-02-24 10:13 | NUR ---
RECEIVED NEW ORDER TO CHANGE COLACE FROM BID TO QD. ALREADY ADMINISTERED AM DOSE THERFORE CHARTED THAT I DID NOT ADMINISTER THE NEW ORDER OF COLACE FOR THIS MORINING AT 0900.
[2017-02-24] MEDS: MULTIVIT/MIN/CA/FE/FA 1 TAB PO SCH (11:31)
[2017-02-24] MEDS: HYDROcodone/APAP 5/325 MG 1 TAB TAB PO PRN (12:55)
[2017-02-24] MEDS: DEXT 5% / NACL 0.45% 500 ML IV SCH (13:01)
[2017-02-24] MEDS ORDERED: POTASSIUM CHLORIDE 10 MEQ TABER PO SCH (13:50)
[2017-02-24] MEDS ORDERED: MAGNESIUM OXIDE 400 MG TAB PO SCH (13:50)
[2017-02-24] MEDS: ONDANSETRON 4 MG/2 ML VIAL IVP PRN (15:03)
[2017-02-24 16:00] VITALS: BP 116/64
--- NOTE | 2017-02-24 19:20 | NUR ---
PATIENT AWAKE AND ALERT, NO SIGNS OF ACUTE DISTRESS. ENDORSED TO COTTON EXPERT NURSE FOR CONTINUITY OF CARE.
--- NOTE | 2017-02-24 19:27 | NUR ---
RECEIVED FROM AM RN IN BED SLEEPING. FAMILY MEMBERS IN HERE VISITING. CARE PLANS FOR THE NIGHT DISCUSSED WITH FAMILY MEMBER AND CALL LIGHT IS WITH IN REACH. NO RESTLESSNESS NOTED. IVF SITE TO RAC#20 INTACT AND NO INFILTRATION. DRESSING TO RIGHT LOWER QUADRANT ABDOMEN S/P LAP APPY INTACT AND NO BLEEDING.
--- NOTE | 2017-02-24 22:11 | NUR ---
AWAKE AT THIS TIME. AMBULATED DOWN THE HALLWAY WITH FAMILY MEMBER. NO COMPLAINTS OF ANY PAIN AT THIS TIME. CALL LIGHT WITH IN REACH.
--- NOTE | 2017-02-24 22:33 | NUR ---
PT. STATED THAT SHE IS WITHPAIN AT THE INCISION SITE. REQUESTED FOR PAIN RELIEVER. MEDICATED ORDERED. VERBALIZES WELL.
[2017-02-25 00:34] VITALS: BP 110/67
--- NOTE | 2017-02-25 00:38 | NUR ---
PT. HEART TONE 140 TAKEN BY MATERNITY UNIT RN. REFUSES PAIN RELIEVER OFFERED. "I CAN STILL TOLERATE IT"
[2017-02-25 04:30] VITALS: BP 118/72
[2017-02-25] MEDS: HYDROmorphone 1 MG/ML AMP IVP PRN (04:39)
[2017-02-25] MEDS: DEXT 5% / NACL 0.45% 500 ML IV SCH (04:40)
[2017-02-25] MEDS: metroNIDAZOLE 500 MG/NS PREMIX 100 ML IV SCH ×2 (04:45→12:18)
--- NOTE | 2017-02-25 04:53 | NUR ---
MEDICATED WITH DILAUDID 1 MG ORDERED AND REQUESTED BY PT. RT PER PT. "VERY PAINFUL" PT. CRYING AND HOLDING ON TO STOMACH . FAMILY AT BEDSIDE WATCHING OVER HER.
--- NOTE | 2017-02-25 05:41 | NUR ---
PT. AWAKE AT THIS TIME AND TALKING TO SOMEONE ON THE PHONE. NO FURTHER COMPLAINT OF PAIN. ENCOURAGED TO WALK THIS A.M. "OK"
[2017-02-25 05:55] LABS: BASOPHILS # (AUTO) 0.1 K/uL (0.00-0.22); BASOPHILS % (AUTO) 0.6 % (0.0-2.0); EOSINOPHILS # (AUTO) 0.1 K/uL (0-0.4); EOSINOPHILS % (AUTO) 1.6 % (0.0-4.0); HEMATOCRIT 32.3 % (36-48); HEMOGLOBIN 10.7 g/dL (12.0-16.0); LYMPHOCYTES # (AUTO) 1.7 K/uL (2.5-16.5); MEAN CORPUSCULAR HEMOGLOBIN 30 pg (27-31); MEAN CORPUSCULAR HGB CONC 33 g/dL (33-37); MEAN CORPUSCULAR VOLUME 92 fL (80-94); MONOCYTES # (AUTO) 0.6 K/uL (0.8-1.0); MONOCYTES % (AUTO) 6.9 % (1.7-9.3); NEUTROPHILS # (AUTO) 6.6 K/uL (1.8-7.7); NEUTROPHILS % (AUTO) 71.9 % (42.2-75.2); PLATELET COUNT (AUTO) 262 K/uL (140-450); RED BLOOD CELL COUNT(AUTO) 3.53 MIL/uL (4.20-5.40); RED CELL DISTRIBUTION WIDTH 12.7 % (11.6-13.7); WHITE BLOOD COUNT (AUTO) 9.1 K/uL (4.5-11.0)
[2017-02-25 06:19] LABS: ANION GAP 12.4 (8-16); CALCIUM 8.7 mg/dL (8.5-10.1); CARBON DIOXIDE 28.6 mmol/L (21-32); CREATININE 0.4 mg/dL (0.6-1.3)
--- NOTE | 2017-02-25 07:15 | NUR ---
RECEIVED PT REPORT AT BEDSIDE FROM NIGHT NURSE. PT IS AAOX4 AND SHOWS NO S/S OF DISTRESS ON ROOM AIR. PT HAS A NOTED IV ON THE R AC WITH IVF'S INFUSING WELL. PT HAS A NOTED DRESSING THAT IS CLEAN DRY AND INTACT. PT DOES NOT C/O PAIN. PT STATES LBM WAS ON 01/2817. PT HAS A SCHEDULED STOOL SOFTENER. WILL ENCOURAGE PT TO WALK ON UNIT AND DRINK FLUIDS. PT IS AWARE OF POC FOR TODAY. PT VERBALIZED UNDERSTANDING. PT'S BED IS LOWERED WITH CALL LIGHT WITHIN REACH.
--- NOTE | 2017-02-25 07:15 | NUR ---
ENDORSED TO THE NEXT RN FOR CONTINUITY OF CARE. AWAKE AND NO RESTLESSNESS NOTED. CALL LIGHT WITH IN REACH AT ALL TIMES. A/O X 4. ROM X 4. DRESSING TO LAP. APPY SITE INTACT AND DRY.
--- NOTE | 2017-02-25 09:00 | NUR ---
SPOKE WITH DR MONGE REGARDING PT POTASSIUM OF 3.0 AND MAGNESIUM 1.2. WILL AWAIT ORDERS.
[2017-02-25] MEDS: LACTOBACILLUS RHAMNOSUS GG 1 EACH CAP PO SCH (09:11)
[2017-02-25] MEDS: DOCUSATE SODIUM 100 MG GELCAP PO SCH (09:11)
--- NOTE | 2017-02-25 09:11 | NUR ---
PT C/O N/V. ADMINISTERED PRN N/V MEDICATION AND SCHEDULED MEDICATIONS. PT TOLERATED ACTIVITY WELL. PT DENIES PAIN AND SHOWS NO S/S OF DISTRESS ON ROOM AIR. WILL CONTINUE TO MONITOR.
[2017-02-25] MEDS: ONDANSETRON 4 MG/2 ML VIAL IVP PRN (09:12)
[2017-02-25] MEDS ORDERED: MAG SULF 2000 MG/WATER PREMIX 50 ML IV ONE (10:00)
[2017-02-25] MEDS ORDERED: POTASSIUM CHLORIDE 40 MEQ, LIDOCAINE 1% 25 MG in NACL 0.9% 250 ML IV ONE (10:00)
--- NOTE | 2017-02-25 10:25 | NUR ---
CM NOTE CONCURRENT REVIEW FAXED TO [facility] [phone] ABBY BREANNE EXT [phone]
--- NOTE | 2017-02-25 10:30 | NUR ---
ADMINISTERED SCHEDULED MEDICATION. PT IS ASLEEP AND SHOWS NO S/S OF DISTRESS ON ROOM AIR. PT IS EASILY AWAKEN AND DENIES PAIN AND N/V. WILL CONTINUE TO MONITOR. PT BOYFRIEND IS AT BEDSIDE.
[2017-02-25] MEDS ORDERED: TYL3 PO (10:53)
[2017-02-25] MEDS ORDERED: ONDA4ODT1 SL (10:57)
--- NOTE | 2017-02-25 11:25 | NUR ---
PT IS SLEEPING AND SHOWS NO S/S OF DISTRESS ON ROOM AIR.
[2017-02-25] MEDS: MULTIVIT/MIN/CA/FE/FA 1 TAB PO SCH (12:18)
--- NOTE | 2017-02-25 12:33 | NUR ---
ADMINISTERED SCHEDULED MEDICATIONS. PT TOLERATED ACTIVITY WELL. PICTURES WERE TAKEN OF INCISION. WILL PLACE PHOTOS IN CHART. PT SHOWS NO S/S OF DISTRESS ON ROOM AIR. THE BED IS LOWERED WITH CALL LIGHT WITHIN REACH.
--- NOTE | 2017-02-25 13:16 | NUR ---
PT AMB TO RESTROOM AND HAD A BM. PT IS NOW IN BED AND SHOWS NO S/S OF DISTRESS ON ROOM AIR. WILL CONTINUE TO MONITOR.
--- NOTE | 2017-02-25 14:43 | NUR ---
PT HAS VISITORS AT BEDSIDE. PT SHOWS NO S/S OF DISTRESS ON ROOM AIR. PT BED IS LOWERED WITH CALL LIGHT WITHIN. REACH. WILL CONTINUE TO MONITOR.
[2017-02-25] MEDS: ACETAMINOPHEN 325 MG TAB PO PRN (15:08)
--- NOTE | 2017-02-25 15:10 | NUR ---
PT C/O HEADACHE 02/02. ADMINISTERED TYLENOL 650 MG. WILL CONTINUE TO MONITOR.
--- NOTE | 2017-02-25 15:19 | NUR ---
PER GABBY TALLEY FHT ARE 142.
[2017-02-25 15:51] VITALS: BP 96/58
--- NOTE | 2017-02-25 17:00 | NUR ---
PT AMB TO RESTROOM. PT SHOWS NO S/S OF DISTRESS ON ROOM AIR. PT C/O PAIN 04/04 WILL MEDICATE.
[2017-02-25] MEDS: HYDROcodone/APAP 5/325 MG 1 TAB TAB PO PRN (17:44)
--- NOTE | 2017-02-25 18:01 | NUR ---
PT WAS GIVEN DISCHARGED INSTRUCTIONS AND PRESCRIPTIONS. ALL PAPERWORK WAS SIGNED. ALL QUESTIONS ANSWERED. PT VERBALIZED UNDERSTANDING. ALL BELONGINGS AND PRESCRIPTIONS IN PT POSSESSION. PT HAS IV POTASSIUM INFUSING WELL. WILL FINISH MEDICATION AND PT WILL BE DISCHARGED BY 1830.
--- NOTE | 2017-02-25 18:30 | NUR ---
PT HAS BEEN DISCHARGED. ALL DISCHARGE INSTRUCTIONS AND PRESCRIPTIONS IN PT POSSESSION. PT HAS ALL BELONGINGS. PT VERBALIZED UNDERSTANDING OF PAPERWORK. PT IV WAS DISCONTINUED WITH CANNULA INTACT. PT STATES PAIN IMPROVED FROM PRN PAIN MEDICATION GIVEN NORCO 5/325 MG. PT WAS OFFERED WHEELCHAIR. PT LEFT UNIT WITH FAMILY PRESENT AT SIDE. PT LEFT IN STABLE CONDITION.
== END 2017-02-25 18:30 | disposition home or self-care (01) | DRG 952 ==
LOC: MED 15:07 → MTU 19:57
PROVIDERS: ADMIT Family Medicine; ATTEND Family Medicine
PROC: 0DTJ0ZZ Resection of Appendix, Open Approach (ICD-10-PCS; principal; 2017-02-22 17:30)
DX: O99.612 Diseases of the digestive system complicating pregnancy, second trimester (principal); E83.42 Hypomagnesemia; K35.80 Unspecified acute appendicitis; E87.6 Hypokalemia; N83.201 Unspecified ovarian cyst, right side; D64.9 Anemia, unspecified; O99.012 Anemia complicating pregnancy, second trimester; Z3A.19 19 weeks gestation of pregnancy; O99.282 Endocrine, nutritional and metabolic diseases complicating pregnancy, second trimester; O34.82 Maternal care for other abnormalities of pelvic organs, second trimester
CPT/HCPCS: 36415; 76705; 76805; 80048; 80053; 81003; 82150; 82607; 82728; 82746; 83036; 83540; 83605; 83690; 83735; 83880; 84100; 84436; 84439; 84443; 84479; 85025; 85045; 85610; 85730; 86140; 86886; 86900; 86901; 86920; 87040; 87081; 87086; 93005; 96361; 96374; 96375; 96376; 99291; J0690; J0696; J1170; J2001; J2270; J2405; J3475; J3480; J3490; J7030; J7060; Q0092

== ENCOUNTER 2017-04-25 08:20 | Observation (INO) | payer OTHER ==
[~2017-04-25] VITALS: Ht 160 cm; Wt 64.4 kg
[~2017-04-25 08:20] MED LIST: ONDA4ODT1 SL; TYL3 PO
[2017-04-25 09:00] VITALS: BP 109/66
[2017-04-25] MEDS ORDERED: IRON65TA11 PO (09:25)
[2017-04-25] MEDS ORDERED: PREN-546 PO (09:25)
== END 2017-04-25 09:45 | disposition home or self-care (01) ==
LOC: MLD 08:20
PROVIDERS: ADMIT Obstetrics & Gynecology; ATTEND Obstetrics & Gynecology
DX: O26.893 Other specified pregnancy related conditions, third trimester (principal); R10.9 Unspecified abdominal pain; Z3A.28 28 weeks gestation of pregnancy
CPT/HCPCS: 81000; G0378

== ENCOUNTER 2017-05-26 20:56 | Emergency (ER) | payer OTHER ==
[~2017-05-26] VITALS: Ht 160 cm; Wt 66.2 kg
[~2017-05-26 20:56] MED LIST changes: +FERR-252 PO; -ONDA4ODT1 SL; +PREN-546 PO; -TYL3 PO
[2017-05-26 21:07] VITALS: BP 117/73
--- NOTE | 2017-05-26 21:41 | NUR ---
TO ER OF2
--- NOTE | 2017-05-26 21:45 | NUR ---
PT BIB FAMILY C/O COUGH/SORE THROAT. 32 WEEKS , G1, P1. WAS TAKEN TO L & D, WAS BROUGHT BACK TO ER. PRE L&D FHT 153-WNL. MED HX: 5150 PT DENIES N/V/D; SKIN IS INTACT, PINK/WARM/DRY; AAOX4, PERRL, WITH EVEN AND STEADY GAIT; LUNGS CLEAR BL, BREATHING UNLABORED; HR EVEN AND REGULAR, BL PERIPHERAL PULSES PRESENT; BS ACTIVE X4, NO TENDERNESS TO PALPATION. PT DENIES ANY FEVER, CP, SOB, OR COUGH AT THIS TIME; PT STATES 0/10 PAIN AT THIS TIME; VSS; PATIENT POSITIONED FOR COMFORT; HOB ELEVATED; BEDRAILS UP X2; BED DOWN.
[2017-05-26] MEDS ORDERED: ACETAMINOPHEN 325 MG TAB PO ONE (22:15)
[2017-05-26] MEDS ORDERED: LORATADINE 10 MG TAB PO ONE (22:15)
--- NOTE | 2017-05-26 22:43 | NUR ---
Patient discharged with v/s stable. Written and verbal after care instructions given and explained. Patient alert, oriented and verbalized understanding of instructions. Ambulatory with steady gait. All questions addressed prior to discharge. ID band removed. Patient advised to follow up with PMD. Rx of CLARITIN 10MG, ACETAMINOPHEN 500MG given. Patient educated on indication of medication including possible reaction and side effects. Opportunity to ask questions provided and answered.
[2017-05-26 22:46] VITALS: BP 111/71
== END 2017-05-26 22:46 | disposition home or self-care (01) ==
LOC: MED 20:56 → EDSTATUS 20:56 → MED 22:46
DX: J06.9 Acute upper respiratory infection, unspecified (principal); Z90.89 Acquired absence of other organs; Z79.899 Other long term (current) drug therapy
CPT/HCPCS: 59025; 99283

== ENCOUNTER 2017-05-28 19:25 | Observation (INO) | payer OTHER ==
[~2017-05-28] VITALS: Ht 160 cm; Wt 66.2 kg
[2017-05-28] MEDS ORDERED: TERBUTALINE 1 MG/ML VIAL SUBQ SCH (20:20)
[2017-05-28] MEDS ORDERED: TERBUTALINE 1 MG/ML VIAL SUBQ ONE (20:37)
[2017-05-28 20:45] VITALS: BP 118/73
[2017-05-28] MEDS: TERBUTALINE 1 MG/ML VIAL SUBQ SCH (20:57)
[2017-05-29] MEDS: TERBUTALINE 1 MG/ML VIAL SUBQ SCH (00:08)
[2017-05-29] MEDS: NALBUPHINE 10 MG/ML AMP IVP PRN ×2 (00:16→04:21)
[2017-05-29] MEDS ORDERED: cefTRIAXone 1,000 MG VIAL ONE (00:16)
[2017-05-29] MEDS ORDERED: NALBUPHINE HYDROCHLORIDE 10 MG/ML VIAL ONE ×3 (00:18→08:59)
[2017-05-29] MEDS ORDERED: AMPICILLIN 2,000 MG in NACL 0.9% 100 ML IV SCH (01:45)
[2017-05-29] MEDS ORDERED: AMPICILLIN 2,000 MG VIAL ONE (02:13)
[2017-05-29] MEDS: TERBUTALINE 2.5 MG TAB PO SCH ×4 (03:10→21:21)
[2017-05-29] MEDS ORDERED: TERBUTALINE 2.5 MG TAB ONE ×4 (03:16→21:25)
[2017-05-29] MEDS: AMPICILLIN 1,000 MG in NACL 0.9% 50 ML IV SCH ×5 (06:48→22:29)
[2017-05-29] MEDS ORDERED: AMPICILLIN 1,000 MG VIAL ONE ×5 (06:48→22:17)
--- NOTE | 2017-05-29 09:19 | NUR ---
PATIENT HAS BEEN SCREENED AND CATEGORIZED LOW NUTRITION RISK. PATIENT WILL BE SEEN WITHIN 7 DAYS OF ADMISSION. 06/04/[address]
[2017-05-29] MEDS ORDERED: BETAMETH ACET/BETAMETH NA PH 30 MG/5 ML VIAL IM SCH ×2 (09:50→22:40)
[2017-05-29] MEDS: LACTATED RINGERS 1,000 ML IV SCH ×2 (10:14→21:23)
[2017-05-29] MEDS ORDERED: BETAMETH ACET/BETAMETH NA PH 30 MG/5 ML VIAL IM ONE ×2 (10:54→23:15)
[2017-05-29] MEDS ORDERED: NALBUPHINE 10 MG/ML AMP IVP PRN (23:55)
[2017-05-30] MEDS: NALBUPHINE 10 MG/ML AMP IVP PRN (00:13)
[2017-05-30] MEDS ORDERED: NALBUPHINE HYDROCHLORIDE 10 MG/ML VIAL ONE (00:19)
[2017-05-30] MEDS ORDERED: AMPICILLIN 1,000 MG VIAL ONE ×2 (02:09→06:24)
[2017-05-30] MEDS: AMPICILLIN 1,000 MG in NACL 0.9% 50 ML IV SCH ×2 (02:30→06:29)
[2017-05-30] MEDS: TERBUTALINE 2.5 MG TAB PO SCH (03:43)
[2017-05-30] MEDS ORDERED: TERBUTALINE 2.5 MG TAB ONE (03:51)
[2017-05-30] MEDS: LACTATED RINGERS 1,000 ML IV SCH (06:30)
[2017-05-30 08:29] VITALS: BP 116/64
== END 2017-05-30 09:04 | disposition home or self-care (01) ==
LOC: MLD 19:25
PROVIDERS: ADMIT Obstetrics & Gynecology; ATTEND Obstetrics & Gynecology
DX: O26.893 Other specified pregnancy related conditions, third trimester (principal); M54.9 Dorsalgia, unspecified; Z3A.33 33 weeks gestation of pregnancy
CPT/HCPCS: 76805; 76815; 96361; 96365; 96366; 96367; 96372; 96375; 96376; G0378; J0290; J0696; J0702; J2300; J3105; J7030; J7120; Q0092; J7060

== ENCOUNTER 2017-06-07 11:15 | Observation (INO) | payer OTHER ==
[~2017-06-07] VITALS: Ht 160 cm; Wt 67.1 kg
[2017-06-07 11:42] VITALS: BP 108/76
== END 2017-06-07 14:20 | disposition home or self-care (01) ==
LOC: MLD 11:15
PROVIDERS: ADMIT Obstetrics & Gynecology; ATTEND Obstetrics & Gynecology
DX: O26.613 Liver and biliary tract disorders in pregnancy, third trimester (principal); Z3A.00 Weeks of gestation of pregnancy not specified
CPT/HCPCS: 76819; G0378; Q0092

== ENCOUNTER 2017-06-10 12:44 | Observation (INO) | payer OTHER ==
[2017-06-10 13:35] VITALS: BP 106/66
== END 2017-06-10 17:25 | disposition home or self-care (01) ==
LOC: MLD 12:44
PROVIDERS: ADMIT Obstetrics & Gynecology; ATTEND Obstetrics & Gynecology
DX: Z34.93 Encounter for supervision of normal pregnancy, unspecified, third trimester (principal); Z3A.35 35 weeks gestation of pregnancy
CPT/HCPCS: 76819; G0378; Q0092

== ENCOUNTER 2017-06-14 10:54 | Observation (INO) | payer OTHER ==
[~2017-06-14] VITALS: Ht 160 cm; Wt 67.1 kg
[2017-06-14] MEDS ORDERED: URSO300C14 PO (11:06)
[2017-06-14 11:27] VITALS: BP 113/74
== END 2017-06-14 13:36 | disposition home or self-care (01) ==
LOC: MLD 10:54
PROVIDERS: ADMIT Obstetrics & Gynecology; ATTEND Obstetrics & Gynecology
DX: Z34.93 Encounter for supervision of normal pregnancy, unspecified, third trimester (principal)
CPT/HCPCS: 76819; G0378; Q0092

== ENCOUNTER 2017-06-21 11:13 | Inpatient (IN) | payer OTHER ==
[~2017-06-21] VITALS: Ht 160 cm; Wt 68.9 kg
[~2017-06-21 11:13] MED LIST changes: +URSO300C14 PO
[2017-06-21] MEDS ORDERED: LACTATED RINGERS 1,000 ML IV SCH ×2 (12:05→13:09)
[2017-06-21] MEDS ORDERED: CARBOPROST 250 MCG/ML AMP IM PRN ×2 (12:30→13:10)
[2017-06-21] MEDS ORDERED: METHYLERGONOVINE 0.2 MG/ML AMP IM PRN ×2 (12:30→13:10)
[2017-06-21] MEDS ORDERED: OXYTOCIN 10 UNITS/ML VIAL IM SCH ×2 (12:30→13:10)
[2017-06-21] MEDS ORDERED: PROMETHAZINE 25 MG/ML VIAL IVP PRN ×2 (12:30→13:10)
[2017-06-21] MEDS ORDERED: NALBUPHINE HYDROCHLORIDE 10 MG/ML VIAL IVP PRN ×2 (12:30→13:10)
[2017-06-21 13:10] LABS: ANION GAP 10.2 (8-16); BASOPHILS # (AUTO) 0.1 K/uL (0.00-0.22); BASOPHILS % (AUTO) 0.6 % (0.0-2.0); CARBON DIOXIDE 25.6 mmol/L (21-32); CREATININE 0.4 mg/dL (0.6-1.3); EOSINOPHILS # (AUTO) 0.1 K/uL (0-0.4); EOSINOPHILS % (AUTO) 0.9 % (0.0-4.0); HEMATOCRIT 35.9 % (36-48); HEMOGLOBIN 12.2 g/dL (12.0-16.0); LYMPHOCYTES # (AUTO) 1.6 K/uL (2.5-16.5); LYMPHOCYTES % (AUTO) 15.4 % (20.5-51.1); MEAN CORPUSCULAR HEMOGLOBIN 31 pg (27-31); MEAN CORPUSCULAR HGB CONC 34 g/dL (33-37); MEAN CORPUSCULAR VOLUME 92 fL (80-94); MONOCYTES # (AUTO) 0.6 K/uL (0.8-1.0); MONOCYTES % (AUTO) 6.4 % (1.7-9.3); NEUTROPHILS # (AUTO) 7.8 K/uL (1.8-7.7); NEUTROPHILS % (AUTO) 76.7 % (42.2-75.2); PLATELET COUNT (AUTO) 233 K/uL (140-450); POTASSIUM 3.8 mmol/L (3.5-5.1); RED BLOOD CELL COUNT(AUTO) 3.88 MIL/uL (4.20-5.40); RED CELL DISTRIBUTION WIDTH 12.2 % (11.6-13.7); WHITE BLOOD COUNT (AUTO) 10.1 K/uL (4.5-11.0)
[2017-06-21 13:33] LABS: ALBUMIN 2.5 g/dL (3.4-5.0); TOTAL BILIRUBIN 0.3 mg/dL (0.0-1.0)
[2017-06-21 13:39] LABS: APPEARANCE,URINE HAZY (CLEAR); BILIRUBIN,URINE NEGATIVE (NEGATIVE); BLOOD, URINE NEGATIVE (NEGATIVE); COLOR,URINE YELLOW (YELLOW); LEUKOCYTE ESTERASE ,URINE 1+ (NEGATIVE); NITRITE, URINE NEGATIVE (NEGATIVE); UGLUCOSE NEGATIVE (NEGATIVE)
[2017-06-21 13:55] LABS: RBC,URINE NONE SEEN /HPF (0-5)
[2017-06-21] MEDS ORDERED: MISOPROSTOL 25 MCG TAB ONE ×2 (14:26→20:17)
[2017-06-21 15:07] VITALS: BP 114/64
[2017-06-21] MEDS ORDERED: AZITHROMYCIN 1,000 MG in DEXTROSE 5% 250 ML IV SCH (17:10)
[2017-06-21] MEDS ORDERED: AZITHROMYCIN 1,000 MG in DEXTROSE 5% 500 ML IV SCH (18:30)
[2017-06-22] MEDS ORDERED: MISOPROSTOL 25 MCG TAB ONE ×4 (02:12→16:15)
[2017-06-22] MEDS ORDERED: PROMETHAZINE 25 MG/ML VIAL ONE (05:26)
[2017-06-22] MEDS ORDERED: NALBUPHINE HYDROCHLORIDE 10 MG/ML VIAL ONE (05:26)
[2017-06-22] MEDS: MISOPROSTOL 25 MCG TAB VG PRN ×3 (08:01→16:09)
[2017-06-22] MEDS: LACTATED RINGERS 1,000 ML IV SCH ×2 (08:02→12:01)
[2017-06-22] MEDS ORDERED: BUPIVACAINE 0.125%/NS PREMIX 250 ML ONE (09:16)
--- NOTE | 2017-06-22 10:14 | NUR ---
PATIENT HAS BEEN SCREENED AND CATEGORIZED LOW NUTRITION RISK. PATIENT WILL BE SEEN WITHIN 7 DAYS OF ADMISSION. 06/28/2017 MAKENZIE LINO MBA, RD
[2017-06-22] MEDS: OXYTOCIN 20 UNITS in LACTATED RINGERS 1,000 ML IV SCH (20:37)
[2017-06-22] MEDS ORDERED: CITRIC ACID/SODIUM CITRATE 30 ML UDC PO SCH (22:00)
[2017-06-22] MEDS ORDERED: ceFAZolin 1,000 MG VIAL ONE (22:06)
[2017-06-22] MEDS ORDERED: CITRIC ACID/SODIUM CITRATE 30 ML UDC ONE (22:06)
[2017-06-22] MEDS ORDERED: OXYTOCIN 10 UNITS/ML VIAL ONE (22:56)
[2017-06-22] MEDS ORDERED: METHYLERGONOVINE 0.2 MG/ML AMP ONE (22:57)
[2017-06-22] MEDS ORDERED: SODIUM BICARBONATE 8.4% PFS 50 MEQ/50 ML SYR IVP ONE (23:09)
[2017-06-22] MEDS ORDERED: LIDOCAINE/EPI MPF 2%1:200000 10 ML VIAL INJ ONE (23:09)
[2017-06-22] MEDS ORDERED: MORPHINE PRES FREE 10 MG/10 ML AMP IV ONE (23:09)
[2017-06-22] MEDS ORDERED: NALBUPHINE 10 MG/ML AMP IVP PRN (23:35)
[2017-06-22] MEDS ORDERED: NALOXONE 0.4 MG/ML VIAL IVP PRN ×3 (23:35)
[2017-06-22] MEDS ORDERED: ONDANSETRON 4 MG/2 ML VIAL IVP PRN ×2 (23:35)
[2017-06-22] MEDS ORDERED: KETOROLAC 60 MG/2 ML VIAL IM PRN (23:35)
[2017-06-22] MEDS ORDERED: IBUPROFEN 800 MG TAB PO PRN (23:45)
[2017-06-22] MEDS ORDERED: TEMAZEPAM 15 MG CAP PO PRN (23:45)
[2017-06-22] MEDS ORDERED: MEASLES, MUMPS, AND RUBELLA 1 VIAL SQVAC PRN (23:45)
[2017-06-22] MEDS ORDERED: METHYLERGONOVINE 0.2 MG/ML AMP IM PRN (23:45)
[2017-06-22] MEDS ORDERED: TRIMETHOBENZAMIDE 200 MG/2 ML SYR IM PRN (23:45)
[2017-06-23] MEDS ORDERED: ONDANSETRON 4 MG/2 ML VIAL ONE (00:04)
[2017-06-23] MEDS: OXYTOCIN 20 UNITS in LACTATED RINGERS 1,000 ML IV SCH ×3 (02:15→19:35)
[2017-06-23] MEDS ORDERED: OXYTOCIN 20 UNITS/LR PREMIX 1,000 ML IV ONE (02:18)
[2017-06-23] MEDS: diphenhydrAMINE 50 MG/ML VIAL IVP PRN ×2 (03:29→11:17)
[2017-06-23 06:56] LABS: HEMATOCRIT 31.7 % (36-48); HEMOGLOBIN 10.7 g/dL (12.0-16.0); MEAN CORPUSCULAR HEMOGLOBIN 31 pg (27-31); MEAN CORPUSCULAR HGB CONC 34 g/dL (33-37); MEAN CORPUSCULAR VOLUME 92 fL (80-94); PLATELET COUNT (AUTO) 203 K/uL (140-450); RED BLOOD CELL COUNT(AUTO) 3.44 MIL/uL (4.20-5.40); RED CELL DISTRIBUTION WIDTH 11.9 % (11.6-13.7); WHITE BLOOD COUNT (AUTO) 14.9 K/uL (4.5-11.0)
[2017-06-23 08:04] LABS: BASOPHILS % (MANUAL) 0 % (0-2); EOSINOPHILS % (MANUAL) 0 % (0-4); LYMPHOCYTES % (MANUAL) 12 % (20-46); MONOCYTES % (MANUAL) 8 % (5-12)
[2017-06-23] MEDS ORDERED: OXYTOCIN 10 UNITS/ML VIAL ONE (11:12)
[2017-06-23] MEDS: DOCUSATE SOD/SENNA 50/8.6 MG 1 TAB PO SCH (20:55)
[2017-06-23] MEDS: HYDROcodone/APAP 5/325 MG 1 TAB TAB PO PRN (22:15)
[2017-06-23] MEDS: SIMETHICONE 80 MG TAB.CHEW PO PRN (23:13)
[2017-06-24] MEDS: oxyCODONE/APAP 5/325 MG 1 TAB TAB PO PRN ×4 (00:51→22:28)
[2017-06-24] MEDS ORDERED: INFLUENZA VIRUS VACCINE QUAD 0.5 ML SYR IMVAC SCH (01:50)
[2017-06-24] MEDS: SIMETHICONE 80 MG TAB.CHEW PO PRN (15:00)
[2017-06-24] MEDS: DOCUSATE SOD/SENNA 50/8.6 MG 1 TAB PO SCH (21:28)
[2017-06-25] MEDS: HYDROcodone/APAP 5/325 MG 1 TAB TAB PO PRN (05:47)
[2017-06-25] MEDS ORDERED: IBUP-2213 PO (10:44)
[2017-06-25] MEDS: SIMETHICONE 80 MG TAB.CHEW PO PRN (11:53)
== END 2017-06-25 15:15 | disposition home or self-care (01) | DRG 540 ==
LOC: OBSVTOIN 11:13 → MLD 11:13 → MFCC 06-23 00:30
PROVIDERS: ADMIT Obstetrics & Gynecology; ATTEND Obstetrics & Gynecology
PROC: 10D00Z1 Extraction of Products of Conception, Low, Open Approach (ICD-10-PCS; principal; 2017-06-22 22:30)
PROC: 3E0234Z Introduction of Serum, Toxoid and Vaccine into Muscle, Percutaneous Approach (ICD-10-PCS; 2017-06-24)
PROC: 3E0234Z Introduction of Serum, Toxoid and Vaccine into Muscle, Percutaneous Approach (ICD-10-PCS; 2017-06-24)
DX: O32.4XX0 Maternal care for high head at term, not applicable or unspecified (principal); K83.1 Obstruction of bile duct; O26.62 Liver and biliary tract disorders in childbirth; O61.9 Failed induction of labor, unspecified; O62.0 Primary inadequate contractions; Z37.0 Single live birth; Z3A.37 37 weeks gestation of pregnancy; Z23 Encounter for immunization
CPT/HCPCS: 36415; 51702; 59200; 80053; 81001; 85025; 86592; 86886; 86900; 86901; 87086; 90658; 90715; J0456; J0690; J1200; J1885; J2001; J2210; J2270; J2300; J2405; J2550; J2590; J3490; J7060; J7120

== ENCOUNTER 2017-11-24 19:26 | Emergency (ER) | payer OTHER ==
[~2017-11-24] VITALS: Ht 160 cm; Wt 57.6 kg
[~2017-11-24 19:26] MED LIST changes: -FERR-252 PO; +IBUP-2213 PO; -PREN-546 PO; -URSO300C14 PO
[2017-11-24 19:29] VITALS: BP 141/73
--- NOTE | 2017-11-24 19:35 | NUR ---
PT AMBULATED TO ER BED 11
--- NOTE | 2017-11-24 19:39 | NUR ---
CAME IN W C/O 04/04 FRONTAL HEADACHE, ACUTE ONSET X SATURDAY. PT REPORTS INTERMITTENT BLURRY VISION AND NAUSEA, DENIES VOMITING. DENIES COUGH/CONGESTION, FEVER/CHILLS. DENIES OTHER PMH/RX, REPORTS TAKING EXCEDRIN X2 HOURS AGO WITH MODERATE RELIEF OF SYMPTOMS
[2017-11-24] MEDS ORDERED: SUMAtriptan 25 MG TAB PO ONE (19:45)
[2017-11-24] MEDS ORDERED: ACETAMINOPHEN EXTRA STRENGTH 500 MG TAB PO ONE (19:45)
[2017-11-24] MEDS ORDERED: ONDANSETRON 4 MG ODT PO ONE (20:15)
[2017-11-24] MEDS ORDERED: KETOROLAC 30 MG/ML VIAL IM ONE (20:15)
[2017-11-24] MEDS ORDERED: PROCHLORPERAZINE 5 MG TAB PO ONE (21:05)
[2017-11-24] MEDS ORDERED: NACL 0.9% 1,000 ML IV ONE (21:40)
--- NOTE | 2017-11-24 21:40 | NUR ---
C/O PERSISTENT HEADACHE 03/04, ER MD HERNANDEZ MADE AWARE.
[2017-11-24] MEDS ORDERED: MORPHINE SULFATE 4 MG/ML SYR IVP ONE (21:45)
--- NOTE | 2017-11-24 21:51 | NUR ---
PT TAKEN TO CT
[2017-11-24 22:11] LABS: HEMATOCRIT 40.4 % (36-48); HEMOGLOBIN 13.7 g/dL (12.0-16.0); MEAN CORPUSCULAR HEMOGLOBIN 30 pg (27-31); MEAN CORPUSCULAR HGB CONC 34 g/dL (33-37); MEAN CORPUSCULAR VOLUME 87.7 fL (80-94); PLATELET COUNT (AUTO) 278 K/uL (140-450); RED BLOOD CELL COUNT(AUTO) 4.61 MIL/uL (4.20-5.40)
[2017-11-24 22:24] LABS: APPEARANCE,URINE CLEAR (CLEAR); BILIRUBIN,URINE NEGATIVE (NEGATIVE); BLOOD, URINE 3+ (NEGATIVE); COLOR,URINE YELLOW (YELLOW); LEUKOCYTE ESTERASE ,URINE NEGATIVE (NEGATIVE); NITRITE, URINE NEGATIVE (NEGATIVE); UGLUCOSE NEGATIVE (NEGATIVE)
[2017-11-24 22:25] LABS: ANION GAP 15.9 (8-16); CREATININE 0.9 mg/dL (0.6-1.3); POTASSIUM 3.9 mmol/L (3.5-5.1)
[2017-11-24 22:27] LABS: BARBITURATE, URINE NEG. ng/ml (NEG <=200); BENZODIAZEPINE, URINE NEG. ng/mL (NEG <=200); CANNABINOID, URINE NEG. ng/mL (NEG <=50); COCAINE, URINE NEG. ng/mL (NEG <=300); OPIATE, URINE NEG. ng/mL (NEG <=2000); PHENCYCLIDINE SCREEN,URINE NEG. ng/mL (NEG <=25)
--- NOTE | 2017-11-24 22:30 | NUR ---
Bryanna posada in ED - 11/24/17 at 2346 by SAFIA CONTINOUS TO C/O 03/04 HEADACHE, ER MD HERNANDEZ MADE AWARE
--- NOTE | 2017-11-24 22:30 | NUR ---
CONTINUES TO C/O 03/04 HEADACHE, ER MD HERNANDEZ MADE AWARE
[2017-11-24 22:31] LABS: ALBUMIN 4.4 g/dL (3.4-5.0); TOTAL BILIRUBIN 0.4 mg/dL (0.0-1.0)
[2017-11-24 22:54] LABS: RBC,URINE 3-10 (FEW) /HPF (0-5)
[2017-11-24] MEDS ORDERED: ALPRAZolam 0.5 MG TAB PO ONE (23:05)
--- NOTE | 2017-11-24 23:30 | NUR ---
PT REPORTS " I FEEL BETTER" . RATES HEADACHE AT 3/10
--- NOTE | 2017-11-24 23:51 | NUR ---
Patient discharged with v/s stable. Written and verbal after care instructions given and explained. Patient alert, oriented and verbalized understanding of instructions. Ambulatory with steady gait. All questions addressed prior to discharge. ID band removed. Patient advised to follow up with PMD. Rx of ATIVAN AND IBUPROFEN given. Patient educated on indication of medication including possible reaction and side effects. Opportunity to ask questions provided and answered. IV removed, catheter intact and site benign. Applied folded 4x4 gauze and tape to stop bleeding.
[2017-11-24 23:55] VITALS: BP 118/76
== END 2017-11-24 23:51 | disposition home or self-care (01) ==
LOC: MED 19:26
DX: F53 Mental and behavioral disorders associated with the puerperium, not elsewhere classified (principal); R51 Headache; Z79.899 Other long term (current) drug therapy
CPT/HCPCS: 36415; 70450; 80053; 80305; 81001; 81025; 84702; 85025; 87086; 96372; 96374; 99285; J1885; J2270; J7030; Q0163; Q0164; S0119

== ENCOUNTER 2018-05-26 17:27 | Emergency (ER) | payer MEDICAID, OTHER ==
[~2018-05-26] VITALS: Ht 160 cm; Wt 55.1 kg
[2018-05-26 17:46] VITALS: BP 125/78
--- NOTE | 2018-05-26 17:49 | NUR ---
PER HAM STRIPPER PT AMBULATES BACK TO THE LOBBY
--- NOTE | 2018-05-26 18:21 | NUR ---
BIB BOYFRIEND. PATIENT PRESENTS TO ED WITH CHEST PAIN THAT WORSENS WHEN SHE BREATHS . PT STATES SHE WOKE UP WITH THE PAIN . DENIES N/V/D; SKIN IS PINK/WARM/DRY; AAOX4 WITH EVEN AND STEADY GAIT; LUNGS CLEAR BL; HR EVEN AND REGULAR; PT DENIES ANY FEVER, CP, SOB, OR COUGH AT THIS TIME; PATIENT STATES PAIN OF 7/10 AT THIS TIME; VSS; PATIENT POSITIONED FOR COMFORT; HOB ELEVATED; BEDRAILS UP X2; BED DOWN. ER MD MADE AWARE OF PT STATUS.
[2018-05-26 18:22] VITALS: BP 110/65
--- NOTE | 2018-05-26 19:15 | NUR ---
REPORT RECEIVED FROM GERRI STARK
--- NOTE | 2018-05-26 20:00 | NUR ---
EKG PERFORMED AT BEDSIDE. PT COVERED IN GOWN DURING PROCEDURE.
[2018-05-26 20:24] LABS: BASOPHILS % (AUTO) 0.6 % (0.0-2.0); EOSINOPHILS # (AUTO) 0.1 K/uL (0-0.4); HEMATOCRIT 41.4 % (36-48); LYMPHOCYTES # (AUTO) 2.8 K/uL (2.5-16.5); LYMPHOCYTES % (AUTO) 38.3 % (20.5-51.1); MEAN CORPUSCULAR HEMOGLOBIN 30 pg (27-31); MEAN CORPUSCULAR HGB CONC 34 g/dL (33-37); MEAN CORPUSCULAR VOLUME 88.3 fL (80-94); MONOCYTES # (AUTO) 0.4 K/uL (0.8-1.0); MONOCYTES % (AUTO) 5.2 % (1.7-9.3); NEUTROPHILS % (AUTO) 54.9 % (42.2-75.2); PLATELET COUNT (AUTO) 288 K/uL (140-450); RED BLOOD CELL COUNT(AUTO) 4.69 MIL/uL (4.20-5.40); RED CELL DISTRIBUTION WIDTH 13.2 % (11.6-13.7); WHITE BLOOD COUNT (AUTO) 7.3 K/uL (4.8-10.8)
[2018-05-26 20:51] LABS: ALBUMIN 4.2 g/dL (3.4-5.0); ANION GAP 11.6 (8-16); CARBON DIOXIDE 28.3 mmol/L (21-32); CREATININE 0.6 mg/dL (0.6-1.3); POTASSIUM 3.9 mmol/L (3.5-5.1); TOTAL BILIRUBIN 0.7 mg/dL (0.0-1.0)
[2018-05-26 22:56] LABS: APPEARANCE,URINE SL CLOUDY (CLEAR); BILIRUBIN,URINE NEGATIVE (NEGATIVE); BLOOD, URINE NEGATIVE (NEGATIVE); COLOR,URINE YELLOW (YELLOW); LEUKOCYTE ESTERASE ,URINE NEGATIVE (NEGATIVE); NITRITE, URINE POSITIVE (NEGATIVE); PH,URINE 7.5 (5.0-9.0); UGLUCOSE NEGATIVE (NEGATIVE)
--- NOTE | 2018-05-26 23:00 | NUR ---
PATIENT LEFT WITHOUT BEING SEEN BY DR. MAGALLANES. NO FURTHER CARE PROVIDED FOR PATIENT.
[2018-05-26 23:05] LABS: RBC,URINE 0-5 (RARE) /HPF (0-5); WBC,URINE 0-5 (RARE) /HPF (0-5)
== END 2018-05-26 23:00 | disposition left against medical advice (07) ==
LOC: MED 17:27
DX: R07.89 Other chest pain (principal); R06.02 Shortness of breath; Z53.21 Procedure and treatment not carried out due to patient leaving prior to being seen by health care provider
CPT/HCPCS: 36415; 80053; 81001; 85025; 87086; 93005; 99281

== ENCOUNTER 2018-06-28 20:03 | Emergency (ER) | payer MEDICAID ==
[~2018-06-28] VITALS: Ht 160 cm; Wt 56.7 kg
[2018-06-28 20:07] VITALS: BP 128/65
[2018-06-28] MEDS ORDERED: PROCHLORPERAZINE 10 MG/2 ML VIAL IM ONE (21:25)
[2018-06-28] MEDS ORDERED: diphenhydrAMINE 50 MG/ML VIAL IM ONE (21:25)
[2018-06-28 22:55] VITALS: BP 117/58
== END 2018-06-28 22:55 | disposition home or self-care (01) ==
LOC: MED 20:03
DX: G43.909 Migraine, unspecified, not intractable, without status migrainosus (principal); Z79.1 Long term (current) use of non-steroidal anti-inflammatories (NSAID)
CPT/HCPCS: 96372; 99284; J0780; J1200